=== PATIENT | male | born 1960 | race African-American/Black ===

== ENCOUNTER 2017-01-26 07:14 | Emergency (ER) | payer BC ==
[~2017-01-26] VITALS: Ht 182.9 cm; Wt 120.0 kg
[~2017-01-26 07:14] MED LIST: IBUP-2030; OLME1TAB26
[2017-01-26] MEDS ORDERED: HYDROCODONE/ACETAMINOPHEN 5/325MG TABLET PO ONE (08:45)
[2017-01-26 09:13] VITALS: BP 127/85
== END 2017-01-26 09:00 | disposition home or self-care (01) ==
LOC: ER 07:14
DX: M54.30 Sciatica, unspecified side (principal); M25.562 Pain in left knee; I10 Essential (primary) hypertension
CPT/HCPCS: 99282; 99283

== ENCOUNTER 2019-11-12 11:25 | Emergency (ER) | payer BC ==
[~2019-11-12] VITALS: Ht 182.9 cm; Wt 120.0 kg
[2019-11-12] MEDS ORDERED: IBUPROFEN 600MG TABLET PO ONE (12:00)
[2019-11-12 12:08] LABS: BASOPHILS % 0.9 % (0.0-2.0); EOSINOPHILS % 5.3 % (0.0-5.0); HEMATOCRIT. 41.7 % (42.0-52.0); HEMOGLOBIN. 14.2 g/dL (14.0-18.0); LYMPHOCYTES % 30.4 % (20.0-50.0); MEAN CORPUSCULAR HEMOGLOBIN 27.1 pg (28.0-32.0); MEAN CORPUSCULAR VOLUME 79.7 fL (80.0-94.0); MEAN PLATELET VOLUME 7.7 fl (7.4-10.4); MONOCYTES % 7.9 % (2.0-8.0); NEUTROPHILS % 55.5 % (40.0-76.0); PLATELET 266 x1000/uL (130-400); RED BLOOD CELL COUNT 5.23 mill/uL (4.7-6.1); RED CELL DISTRIBUTION WIDTH 14.8 % (11.6-14.6)
[2019-11-12 12:13] LABS: CHLORIDE 104 mEq/L (98-107)
[2019-11-12 14:32] VITALS: BP 135/85
== END 2019-11-12 14:39 | disposition home or self-care (01) ==
LOC: ER 11:25
DX: I77.1 Stricture of artery (principal); I10 Essential (primary) hypertension; F17.200 Nicotine dependence, unspecified, uncomplicated; Z79.899 Other long term (current) drug therapy
CPT/HCPCS: 36415; 73630; 80053; 85025; 93922; 93971; 99285